=== PATIENT | male | born 1985 | race Caucasian/White ===

== ENCOUNTER 2017-02-23 12:34 | Emergency (ER) | payer OTHER ==
[~2017-02-23] VITALS: Ht 185.4 cm; Wt 90.7 kg
[2017-02-23 14:18] LABS: BASOPHILS 0.8 % (0.0-2.0); EOSINOPHILS 1.7 % (0.0-3.0); HEMATOCRIT 45.9 % (42.0-52.0); HEMOGLOBIN 16.1 gm/dL (14.0-18.0); LYMPHOCYTES 23.1 % (24.0-44.0); MCH 30.4 pg (26.0-34.0); MCHC 35.1 g/dL (28.0-37.0); MCV 86.6 fL (80.0-100.0); MONOCYTES 10.9 % (1.0-8.0); PLATELET COUNT 139 thou/uL (150-400); POLYS 63.5 % (36.0-66.0); RBC 5.29 mil/uL (4.50-6.00); RDW 12.9 % (10.5-14.5); WBC 6.3 thou/uL (4.0-11.0)
[2017-02-23 14:24] LABS: CALCIUM 9.5 mg/dL (8.5-10.1); CREATININE 1.3 mg/dL (0.7-1.3); POTASSIUM 4.2 mmol/L (3.5-5.1)
[2017-02-23 14:30] LABS: TOTAL PROTEIN 7.3 g/dL (6.4-8.2)
== END 2017-02-23 16:31 | disposition home or self-care (01) ==
LOC: ER 12:34
PROVIDERS: Physician Assistant
DX: I86.1 Scrotal varices (principal); K40.90 Unilateral inguinal hernia, without obstruction or gangrene, not specified as recurrent; F17.210 Nicotine dependence, cigarettes, uncomplicated; Z88.8 Allergy status to other drugs, medicaments and biological substances

== ENCOUNTER 2018-12-23 16:37 | Emergency (ER) | payer OTHER ==
[~2018-12-23] VITALS: Ht 185.4 cm; Wt 96.6 kg
[2018-12-23 17:53] VITALS: BP 163/69
== END 2018-12-23 17:54 | disposition home or self-care (01) ==
LOC: ER 16:37
DX: L40.9 Psoriasis, unspecified (principal); F17.210 Nicotine dependence, cigarettes, uncomplicated; Z88.8 Allergy status to other drugs, medicaments and biological substances